=== PATIENT | female | born 1985 | race Caucasian/White ===

== ENCOUNTER → 2017-06-25 | Outpatient (CLI) | payer OTHER ==
[~2017-06-25] MED LIST: COLACE100 MG PO; DEPO-PROVERA; MIRALAX17 GM PO; NORCO 5-325 TA1 EACH PO; ZOFRAN ODT4 MG PO
== END ==
LOC: M.RAD 12:12
DX: M79.641 Pain in right hand (principal); R60.0 Localized edema

== ENCOUNTER 2017-11-06 02:51 | Inpatient (IN) | payer OTHER ==
[~2017-11-06] VITALS: Ht 162.6 cm; Wt 83.9 kg
[2017-11-06] MEDS ORDERED: DEPO-PROVERA (03:00)
[2017-11-06 03:02] VITALS: BP 127/82
[2017-11-06 03:06] LABS: URINE BILIRUBIN NEGATIVE (Negative); URINE BLOOD NEGATIVE (Negative); URINE CLARITY CLEAR; URINE COLOR YELLOW; URINE GLUCOSE-RANDOM NEGATIVE (Negative); URINE KETONES TRACE (Negative); URINE LEUKOCYTES-REFLEX NEGATIVE (Negative); URINE NITRITE-REFLEX NEGATIVE (Negative); URINE PROTEIN NEGATIVE (Negative); URINE SPECIFIC GRAVITY >= 1.030 (1.005-1.030); URINE UROBILINOGEN 0.2 E.U./dl (0.2-1.0)
[2017-11-06 04:26] LABS: ABSOLUTE BASOPHILS 0.1 thou/uL (0.0-0.2); ABSOLUTE EOSINOPHILS 0.2 thou/uL (0.0-0.7); ABSOLUTE LYMPHOCYTES 3.2 thou/uL (0.8-5.3); ABSOLUTE MONOCYTES 1.2 thou/uL (0.0-1.2); ABSOLUTE NEUTROPHILS 8.8 thou/uL (1.6-8.1); BASOPHILS 0.8 %; EOSINOPHILS 1.1 %; HEMATOCRIT 42.6 % (37.0-47.0); HEMOGLOBIN 13.7 gm/dL (12.0-15.0); LYMPHOCYTES 23.5 %; MCH 29.9 pg (26.0-34.0); MCHC 32.1 g/dL (28.0-37.0); MONOCYTES 8.9 %; NUCLEATED RBCS 0 /100WBC; PLATELET COUNT* 250 thou/uL (150-400); POLYS 65.7 %; RBC 4.58 mil/uL (4.20-5.00); RDW-CV 13.1 % (10.5-14.5); WBC 13.4 thou/uL (4.0-11.0)
[2017-11-06 04:35] LABS: CALCIUM 8.7 mg/dL (8.5-10.1); CREATININE 0.7 mg/dL (0.6-1.3); POTASSIUM 4.1 mmol/L (3.5-5.1)
[2017-11-06 04:36] LABS: TOTAL BILIRUBIN 0.4 mg/dL (<0.1-1.0); TOTAL PROTEIN 7.2 g/dL (6.4-8.2)
[2017-11-06 07:53] VITALS: BP 121/73
[2017-11-06 11:10] VITALS: BP 122/68
[2017-11-06 16:00] VITALS: BP 96/56
--- NOTE | 2017-11-06 17:00 | NUR ---
ASSUMED CARE OF PATIENT AFTER ARRIVING FROM THE ED AT 0800. ALERT AND ORIENTED X4. ADMISSION HISTORY AND ASSESSMENT COMPLETED AND CHARTED. VSS ON ROOM AIR. NO COMPLAINTS OF SOA. PAIN AND NAUSEA MANAGED WITH MEDICATIONS. FLUIDS AND ANTIBIOTICS INFUSED ORDERED. LABS AND STUDIES COMPLETED. SURGERY PLANNED FOR TOMORROW AT 0900, CONSENT SIGNED AND CHECKLIST STARTED. PATIENT RESTING COMFORTABLY IN BED AT THIS TIME. HOURLY ROUNDS MAINTAINED, CALL LIGHT WITHIN REACH, NURSING WILL CONTINUE TO MONITOR.
[2017-11-06 20:00] VITALS: BP 98/66
[2017-11-07 04:00] VITALS: BP 112/56
[2017-11-07 04:07] LABS: HEMATOCRIT 41.8 % (37.0-47.0); HEMOGLOBIN 13.7 gm/dL (12.0-15.0); MCH 30.2 pg (26.0-34.0); MCHC 32.7 g/dL (28.0-37.0); MCV 92.5 fL (80.0-100.0); RBC 4.53 mil/uL (4.20-5.00); RDW-CV 12.9 % (10.5-14.5); WBC 7.3 thou/uL (4.0-11.0)
[2017-11-07 04:35] LABS: ALBUMIN 3.9 g/dL (3.4-5.0); CALCIUM 8.5 mg/dL (8.5-10.1); CREATININE 0.6 mg/dL (0.6-1.3); MAGNESIUM 2.1 mg/dL (1.8-2.4); POTASSIUM 4.5 mmol/L (3.5-5.1); TOTAL BILIRUBIN 0.6 mg/dL (<0.1-1.0); TOTAL PROTEIN 6.6 g/dL (6.4-8.2)
[2017-11-07 06:55] VITALS: BP 112/56
[2017-11-07 10:11] VITALS: BP 121/68
[2017-11-07 15:42] VITALS: BP 113/57
[2017-11-07] MEDS ORDERED: ZOFRAN ODT4 MG PO (16:48)
[2017-11-07] MEDS ORDERED: NORCO 5-325 TA1 EACH PO (17:56)
[2017-11-07 17:58] VITALS: BP 113/57
[2017-11-07] MEDS ORDERED: MIRALAX17 GM PO (18:02)
[2017-11-07] MEDS ORDERED: COLACE100 MG PO (18:02)
--- NOTE | 2017-11-07 18:42 | NUR ---
ASSUMED CARE OF PATIENT AFTER MORNING REPORT AT APPROX 0710. ALERT AND ORIENTED X4. ASSESSMENT COMPLETED AND CHARTED. VSS ON ROOM AIR. FLUIDS AND ANTIBIOTICS INFUSED ORDERED. PATIENT TAKEN TO PACU AT 0810 AND RETURNED TO THE UNIT AT APPROX 1145. PATIENT REMAINED ALERT AND ORIENTED AND VSS ON ROOM AIR THROUGHOUT SHIFT. PAIN AND NAUSEA MANAGED WITH MEDICATIONS. PATIENT DISCHARGED AT 1810 WITH ALL PERSONAL BELONGINGS, PRESCRIPTIONS AND DISCHARGE INFORMATION.
--- NOTE | 2017-11-14 13:08 | PATH ---
[address] [address] PATHOLOGY RPT PROCEDURE Name: ALLEYLISET Room: [address] IN .R.#: [id number] Admission: 11/06/17 Date of : 81 Discharge: 11/07/17 Report #: [id number] Path Case #: [id number] [facility] Accession Number: [id number] . 01 Material submitted: . GALLBLADDER AND CONTENTS . 01 Clinician provided ICD-10: K80.20 . 01 Clinical history: . Cholelithiasis . 02 Diagnosis: Gallbladder and contents: - Chronic cholecystitis, cholesterolosis and cholelithiasis. (ESAU/db; 11/13/17) LBQ/11/13/2017 . 02 Electronically signed: . Mitul Ames MD, Pathologist NPI- [id number] . 01 Gross description: . The specimen is received in formalin, labeled "Liset Matt, gallbladder and contents" and consists of a green-kramer, shiny, and focally dusky intact gallbladder measuring 9.4 x 2.8 x 2.7 cm. Opening reveals the gallbladder is filled with green bile and multiple yellow-green mulberry calculi measuring up to 0.4 x 0.4 cm. The mucosa is green with yellow highlights and a wall thickness ranging 0.1-0.2 cm. No masses or lesions are identified. Service Desk Agent sections are submitted in A1. (SDY; 11/08/2017) SYU/SYU . 02 Pathologist provided ICD-10: K80.10, K82.4 . 02 CPT . 705818 Specimen Comment: A courtesy copy of this report has been sent to Specimen Comment: [phone], , . Specimen Comment: Report sent to , DR CASTAÑEDA / DR DIANE Performed at: [address] [id number] MD Gaudencio Gallegos MD Phone: [phone] Performed at: [address] [place] [address] PATHOLOGY RPT PROCEDURE Name: LISET MATT Room: [address] IN [facility].#: [id number] Admission: 11/06/17 Date of : 81 Discharge: 11/07/17 Report #: [id number] Path Case #: [id number] [address], [place] [id number] MD Mitul Ames MD Phone: [phone]
--- NOTE | 2017-12-11 11:38 | OP ---
[address] [address] OPERATIVE REPORT Name: LISET HAGER Room: [address] M.R.#: [id number] Admission: 11/06/17 Attend Phys: Sharmin Dodge Discharge: 11/07/17 Date of : 81 Report #: [id number] THIS REPORT FOR: //name// CC: Ren Hancock MD INDICATION FOR SURGERY: Right upper quadrant abdominal pain, cholelithiasis, possible acute cholecystitis. PREOPERATIVE DIAGNOSIS: Cholelithiasis. POSTOPERATIVE DIAGNOSIS: Cholelithiasis. SURGEON: Ren Penn DO. TIME CLOCK MECHANIC: Apollo Good PGY2 and Heidi Granger PGY1. OPERATION PERFORMED: Laparoscopic cholecystectomy. ANESTHESIA: General and local. ESTIMATED BLOOD LOSS: 20 mL. SPECIMEN REMOVED: Gallbladder. COMPLICATIONS: None. DISPOSITION: PACU to floor. Given the symptoms and evidence of cholelithiasis, laparoscopic cholecystectomy was recommended. Risks and complications were discussed at length with the patient and the patient agreed to proceed with surgery. DESCRIPTION OF PROCEDURE: After consent was obtained, the patient was taken to the operating room and placed in supine position. One gram Rocephin was given prior to surgery. SCDs placed bilateral lower extremities. Safety belt placed across the patient's waist. Anesthesia administered without any complication. The patient was then prepped and draped in a standard sterile fashion. Timeout was performed to confirm the patient and procedure. A vertical incision was made just above the umbilicus using an 11 blade scalpel. Electrocautery was used to dissect down to the level of the fascia. The fascia was scored, grasped between 2 Kochers and elevated. Two stitches of 0 Vicryl placed on either side of the fascia in a viphzb-fq-cqxuk fashion. Hemostat was used to bluntly into the peritoneum. A 5-mm Chelsey trocar was placed into the abdomen. A camera was then inserted and insufflation was initiated [place] [address] OPERATIVE REPORT Name: LISET HAGER Room: [address] M.R.#: [id number] Admission: 11/06/17 Attend Phys: Sharmin Dodge Discharge: 11/07/17 Date of : 81 Report #: [id number] gallbladder could be seen just under the edge of the liver. Of note, there was also a right inguinal hernia noted without anything concerning in the hernia. Another 5-mm trocar was placed subxiphoid under direct visualization and 2 in the right upper quadrant under direct visualization. The patient was placed in reverse Trendelenburg and rotated to the left. Gallbladder was grasped and elevated. There was no significant evidence of cholecystitis and the common bile duct could easily be visualized along with what was believed to be the right hepatic artery. The fat right on the level of the Contreras's pouch was scored and fibrinous tissue was dissected off of the gallbladder. [place] dissector was used to easily isolate the cystic duct and the cystic artery, which could easily be seen going up into the gallbladder. After a critical view of safety was obtained, 3 clips were placed on the cystic duct and 2 clips were placed on the cystic artery. Both structures were cut and the gallbladder was easily dissected off of the edge of the liver with electrocautery. All hemostasis was ensured at the end of the case. The gallbladder was placed in a laparoscopic EndoCatch bag and trocars were removed under direct visualization while insufflation was let down. Clips were reinspected at this time and there was no evidence of any bleeding. The camera was then removed from the abdomen. Insufflation was let down completely. The patient tolerated the procedure well. All counts were correct at the end of the case. A 3-0 Vicryl was used to close subcutaneous tissue of the supraumbilical incision and then, 4-0 Monocryl was used to close all skin incisions. Sterile dressings were applied over top. The patient tolerated the procedure well and was awoken from anesthesia and transferred to PACU in stable condition. <ELECTRONICALLY SIGNED> By: Apollo Good DO 12/11/17 1138 [id number] 1102Trshannen Good DO /nt
== END 2017-11-07 18:30 | disposition home or self-care (01) | DRG 418 ==
LOC: M.ERS 02:51 → M.ORTHSURG 06:17 → M.TBA-ER 06:17 → M.ORTHSURG 08:01
PROVIDERS: Internal Medicine; Personal Emergency Response Attendant; ADMIT Internal Medicine
PROC: 0FT44ZZ Resection of Gallbladder, Percutaneous Endoscopic Approach (ICD-10-PCS; principal; 2017-11-07)
DX: K80.00 Calculus of gallbladder with acute cholecystitis without obstruction (principal); R65.10 Systemic inflammatory response syndrome (SIRS) of non-infectious origin without acute organ dysfunction; F17.210 Nicotine dependence, cigarettes, uncomplicated; Z98.84 Bariatric surgery status; Z90.49 Acquired absence of other specified parts of digestive tract; Z82.49 Family history of ischemic heart disease and other diseases of the circulatory system; Z83.3 Family history of diabetes mellitus; Z80.8 Family history of malignant neoplasm of other organs or systems

== ENCOUNTER 2019-03-02 19:18 | Emergency (ER) | payer OTHER ==
[~2019-03-02] VITALS: Ht 162.6 cm; Wt 79.4 kg
[2019-03-02 19:46] LABS: ABSOLUTE BASOPHILS 0.1 thou/uL (0.0-0.2); ABSOLUTE EOSINOPHILS 0.1 thou/uL (0.0-0.7); ABSOLUTE LYMPHOCYTES 2.5 thou/uL (0.8-5.3); ABSOLUTE NEUTROPHILS 15.4 thou/uL (1.6-8.1); BASOPHILS 0.4 %; EOSINOPHILS 0.6 %; HEMATOCRIT 45.3 % (37.0-47.0); HEMOGLOBIN 15.2 gm/dL (12.0-15.0); LYMPHOCYTES 13.2 %; MCH 30.7 pg (26.0-34.0); MCHC 33.5 g/dL (28.0-37.0); MCV 91.6 fL (80.0-100.0); MONOCYTES 5.2 %; MPV 7.8 fl. (7.2-11.1); NUCLEATED RBCS 0 /100WBC; PLATELET COUNT* 322 thou/uL (150-400); POLYS 80.6 %; RBC 4.95 mil/uL (4.20-5.00); RDW-CV 13.1 % (10.5-14.5); WBC 19.2 thou/uL (4.0-11.0)
[2019-03-02 19:53] LABS: URINE BILIRUBIN NEGATIVE (Negative); URINE BLOOD NEGATIVE (Negative); URINE CLARITY CLEAR; URINE COLOR YELLOW; URINE GLUCOSE-RANDOM NEGATIVE (Negative); URINE KETONES TRACE (Negative); URINE LEUKOCYTES-REFLEX NEGATIVE (Negative); URINE NITRITE-REFLEX NEGATIVE (Negative); URINE PROTEIN NEGATIVE (Negative); URINE SPECIFIC GRAVITY >= 1.030 (1.005-1.030); URINE UROBILINOGEN 0.2 E.U./dl (0.2-1.0)
[2019-03-02 19:53] LABS: CALCIUM 8.7 mg/dL (8.5-10.1); CREATININE 0.7 mg/dL (0.6-1.3); POTASSIUM 3.6 mmol/L (3.5-5.1)
[2019-03-02 19:57] LABS: ALBUMIN 4.3 g/dL (3.4-5.0); TOTAL BILIRUBIN 0.2 mg/dL (<0.1-1.0)
[2019-03-02] MEDS ORDERED: REGLAN 10 MG TA10 MG PO (21:25)
[2019-03-02] MEDS ORDERED: FLAGYL500 M1 PO (21:25)
[2019-03-02] MEDS ORDERED: PHENERGAN 25 MG25 M1 PO (21:25)
[2019-03-02 22:19] VITALS: BP 107/77
--- NOTE | 2019-03-03 17:09 | EKG ---
[place] [address] ELECTROCARDIOGRAM REPORT Name: ALLEYALEJANDROLISETCHERIE LOPEZ Room: [facility]#: [id number] Admission: 03/02/19 Attend Phys: Discharge: 03/02/19 Date of : 81 Report #: [id number] THIS REPORT FOR: //name// [facility] ED Test Date: 2019-03-02 Test Time: 19:46:52 Pat Name: LISET HAGER Department: Room: Gender: F Form Coverer: [place] : 1985 Requested By: Yumiko Johnson Order Number: [id number] MD: Arnold Cooper Measurements Intervals [place] Rate: 99 P: 24 ME: 137 QRS: 24 QRSD: 79 T: 3 QT: 340 QTc: 437 Interpretive Statements Sinus rhythm No previous ECG available for comparison Electronically Signed On 03-03-2019 17:08:43 MANAGER FIELD by Arnold Cooper [email or web address] <ELECTRONICALLY SIGNED> By: Arnold Cooper MD, [facility] 03/03/19 1708 1946 45 Arnold Cooper MD, FACC /EPI
== END 2019-03-02 22:20 | disposition home or self-care (01) ==
LOC: M.ERS 19:18
PROVIDERS: Nurse Practitioner Family
DX: K52.9 Noninfective gastroenteritis and colitis, unspecified (principal); F17.210 Nicotine dependence, cigarettes, uncomplicated; Z90.49 Acquired absence of other specified parts of digestive tract; Z90.89 Acquired absence of other organs

== ENCOUNTER → 2019-07-28 | Outpatient (CLI) | payer OTHER ==
[~2019-07-28] MED LIST changes: +FLAGYL500 M1 PO; +PHENERGAN 25 MG25 M1 PO; +REGLAN 10 MG TA10 MG PO
== END ==
LOC: M.LAB 07:56
PROVIDERS: ATTEND Personal Emergency Response Attendant
DX: U07.1 COVID-19 (principal)